=== PATIENT | male | born 1945 | race Caucasian/White ===

== ENCOUNTER 2016-07-10 06:08 | Outpatient (CLI) | payer MEDICARE ==
[~2016-07-10] VITALS: Ht 170.2 cm; Wt 77.1 kg
[~2016-07-10 06:08] MED LIST: ESCI20TA2 PO
== END 2016-07-10 14:24 ==
LOC: PREOP 06:08
PROVIDERS: ATTEND Internal Medicine
DX: Z01.818 Encounter for other preprocedural examination (principal); Z12.11 Encounter for screening for malignant neoplasm of colon

== ENCOUNTER 2016-07-12 07:33 | Day surgery (SDC) | payer MEDICARE ==
[2016-07-11 07:57] VITALS: BP 135/82
[~2016-07-12] VITALS: Ht 170.2 cm; Wt 77.1 kg
--- NOTE | 2016-07-12 07:13 | HISTORY AND PHYSICAL ---
DICTATING PHYSICIAN: Dr. Rojas DATE OF ADMISSION: 07/12/2016 Mr. Melchor is a 70-year-old white male seen for follow-up of hypertension. It has been over 10 years since his last colonoscopy. He does not recall whether or not any polyps were noted at that time. He is not aware of any family history for colon cancer or colon polyps. He has personal history of hypertension and stage III chronic renal disease. PAST HISTORY: 1. Localized bladder cancer for which she underwent TURBT [place] [address] Darnell. Following this he received mitomycin C which unfortunately lead to severe cystitis necessitating cystectomy and ileal loop. He has done well since that time with stable hypertension, and stable GFR's in the 40 to 50 range. 2. Obstructive sleep apnea on home CPAP. 3. He also had a course Scar's level II melanoma removed from his back in 1998. SOCIAL HISTORY: He is still employed with no past smoking history and as I recall only occasional social alcohol intake. PHYSICAL EXAMINATION: Reveals a well-appearing white male in no acute distress. Blood pressure was 142/80 initially and then down to 130/78 at the end of the interview. Weight is 172.2 pounds, is down 4.4 pounds. CHEST: Clear. CV: Revealed a regular rate and rhythm without murmur, S3 or S4. ABDOMEN: Soft, supple without masses, organomegaly, there is a lower quadrant ileostomy bag unremarkable in appearance. EXTREMITIES: Reveal no cyanosis, clubbing, or edema. ASSESSMENT: The patient was set-up for screening colonoscopy on 07/12/2016. Prep instructions were given for Harrison-prep kit and questions were answered. He recently had been to the [facility] for follow-up, had blood tests done there and was told that they were stable. Release of information has been signed so that I can obtain these records and I will see him back in 6 months for routine follow-up. A flu shot was given today. Job ID: [id number] Dictated Date: 06/12/2016 19:48:00 Senior Care Manager Date: 06/13/2016 09:10:54/annie
--- NOTE | 2016-07-12 07:30 | Pre-Op Note & Conscious Sedat ---
Pre-Operative Progress Note H&P Reviewed The H&P was reviewed, patient examined and no changes noted. Date H&P Reviewed: Jul 12, 2016 Time H&P Reviewed: 07:29 Conscious Sedation Pre-Proced ASA Class: 2 Airway Mallampati Classification: ([place] appropriate class) I. II. III, IV Lungs Heart ASA score ASA 1: a normal healthy patient ASA 2: a patient with a mild systemic disease (mid diabetes, controlled hypertension, obesity ASA 3: a patient with a severe systemic disease that limits activity (angina , COPD, prior Myocardial infarction) ASA 4: a patient with an incapacitating disease that is a constant threat to life (CHF, renal failure) ASA 5: a moribund patient not expected to survive 24 hrs. (ruptured aneurysm) ASA 6: a declared brain patient whose organs are being harvested. For emergent operations, add the letter E after the classification Grade 2 Sedation Plan: Analgesia, Amnesia, Plan communicated to team members, Discussed options with patient/fam, Discussed risks with patient/fam Note The patient is an appropriate candidate to undergo the planned procedure, sedation, and anesthesia. The patient immediately re-assessed prior to indication. KIMMIE LIM MD Jul 12, 2016 07:30
[2016-07-12] MEDS ORDERED: FLUMAZENIL (ROMAZICON) 0.1 MG/ML 5 ML VIAL INJ PRN (07:45)
[2016-07-12] MEDS ORDERED: NALOXONE 0.4 MG/ML 1 ML (NARCAN) VIAL IVP PRN (07:45)
[2016-07-12] MEDS ORDERED: LIDOCAINE JELLY 2% (XYLOCAINE) 5 ML TUBE MM PRN (07:45)
[2016-07-12] MEDS ORDERED: 1/2 NS IV SOLUTION 1,000 ML IV PRN (07:45)
[2016-07-12] MEDS ORDERED: 1/2 NS IV SOLUTION 1,000 ML IV ONE (07:55)
[2016-07-12] MEDS ORDERED: LIDOCAINE JELLY 2% (XYLOCAINE) 5 ML TUBE ONE (08:27)
[2016-07-12] MEDS ORDERED: MIDAZOLAM 2 MG/2 ML (VERSED) VIAL ONE ×2 (08:27)
[2016-07-12] MEDS ORDERED: fentaNYL INJECTION 100 MCG/2 ML AMP ONE (08:27)
[2016-07-12] MEDS ORDERED: VALS80TA30 PO (08:32)
[2016-07-12] MEDS: fentaNYL INJECTION 100 MCG/2 ML AMP IVP PRN ×2 (08:35→08:40)
[2016-07-12] MEDS: MIDAZOLAM 2 MG/2 ML (VERSED) VIAL IVP PRN ×2 (08:36→08:45)
[2016-07-12 09:15] VITALS: BP 101/78
[2016-07-12 10:05] VITALS: BP 119/71
[2016-07-12 10:15] VITALS: BP 119/71
--- NOTE | 2016-07-14 13:08 | PROCEDURE REPORT ---
PROCEDURE PHYSICIAN: KIMMIE LIM DATE OF PROCEDURE: 07/12/2016 INDICATION FOR THE PROCEDURE: Screening colonoscopy. PROCEDURE: The patient was placed in the left lateral decubitus position. Prior to undergoing colonoscopy, digital rectal evaluation was performed. There is surgical absence of the prostate. No other abnormalities were noted to digital inspection of the anal canal or distal rectal vault. Anal sphincter tone was normal. The perianal reflux was intact. The colonoscope was inserted into the rectum and under direct visualization advanced to cecum. The cecum was identified by identification of the ileocecal valve and cecal strap. Photographic documentation was obtained. Careful inspection was made as the colonoscope was withdrawn. The patient tolerated the procedure well. FINDINGS: There was no evidence for internal or external hemorrhoids. There was a diminutive polyp noted in the distal rectum. It was photographed, biopsied, ablated, and submitted for histopathology. The sigmoid colon, descending colon, splenic flexure, transverse colon, hepatic flexure, ascending colon and cecum were normal. ASSESSMENT: Diminutive polyp was removed from the distal rectum. As long as there are surprises on histopathology report, will not likely be recommending future screening colonoscopy. No other significant abnormalities were noted on today's study. Job ID: [id number] Dictated Date: 07/12/2016 14:41:20 Curber Date: 07/14/2016 13:04:04 / annie
== END 2016-07-12 10:15 | disposition home or self-care (01) ==
LOC: SDC 07:33
PROVIDERS: ATTEND Internal Medicine
DX: Z12.11 Encounter for screening for malignant neoplasm of colon (principal); K62.1 Rectal polyp

== ENCOUNTER → 2018-03-11 | Outpatient (CLI) | payer MEDICARE ==
[~2018-03-11] MED LIST changes: +VALS80TA31 PO
--- NOTE | 2018-03-11 08:43 | Diagnostic Imaging Report ---
PROCEDURE: US Hepatic (Liver). TECHNIQUE: Multiple real-time grayscale images were obtained over the right upper quadrant in various projections. INDICATION: Abnormal outside CT study demonstrated a questionable fluid-filled structure anterior to the liver. The study is performed for further evaluation. No prior outside images are available for comparison. The liver is 14 cm in size. No discrete liver mass is identified. The main portal vein is patent and shows normal direction of flow. The gallbladder is without stones or sludge. No wall thickening or biliary duct dilatation is seen. Kidney does show some cortical thinning and scarring. No calculi or hydronephrosis is seen. There is no ascites. Pancreas was obscured by bowel gas. No fluid-filled structure is identified adjacent to or anterior to the liver. No abnormality is seen. IMPRESSION: Unremarkable hepatic ultrasound. No fluid-filled structure adjacent to the liver is identified by ultrasound. Dictated by: Dictated on workstation # [id number]
== END ==
LOC: RAD 07:39
PROVIDERS: ATTEND Internal Medicine
DX: R93.8 Abnormal findings on diagnostic imaging of other specified body structures (principal)
CPT/HCPCS: 76705

== ENCOUNTER 2018-06-05 13:18 | Outpatient (CLI) | payer MEDICARE ==
[~2018-06-05] VITALS: Ht 170.2 cm; Wt 77.1 kg
[~2018-06-05 13:18] MED LIST changes: +ESCI10TA55 PO
== END 2018-06-05 13:53 | disposition home or self-care (01) ==
LOC: PREOP 13:18
PROVIDERS: ATTEND Internal Medicine
DX: Z01.818 Encounter for other preprocedural examination (principal)

== ENCOUNTER 2018-06-09 07:11 | Day surgery (SDC) | payer MEDICARE ==
--- NOTE | 2018-06-02 12:45 | HISTORY AND PHYSICAL ---
DATE OF SERVICE: EGD HISTORY AND PHYSICAL DATE OF ADMISSION: 06/09/2018 HISTORY OF PRESENT ILLNESS: The patient is a 72-year-old white male who has been noting over the past 6 weeks, increased issues with intermittent dysphagia predominantly to solids. He will have some occasional burning in his chest. He had one episode where his stools were darker in color, has not noted any bright red blood per rectum, has had no lower quadrant abdominal pain and energy level has been stable. He sometimes has some mild odynophagia. He has had no night sweats, chills, fever or weight loss. PAST MEDICAL HISTORY: Significant for hypertension. 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 He has had no evidence for recurrence. He has noted no blood from his ileostomy site. PHYSICAL EXAMINATION: GENERAL: Reveals a white male who did not appear to be in acute distress. Weight was down 2 pounds from January and a total of 8 pounds from July of this year. He weighs 167 pounds. VITAL SIGNS: Blood pressure 130/90. HEENT: Unremarkable. Sclerae were nonicteric. No evidence for pallor was noted. CHEST: Clear to auscultation. CARDIOVASCULAR: Reveals a regular rate and rhythm without significant murmur, S3 or S4. ABDOMEN: Soft, supple without mass, organomegaly or tenderness. He has normal appearing ileostomy with bagged present in the right lower quadrant. EXTREMITIES: Reveal no cyanosis, clubbing or edema. ASSESSMENT AND PLAN: Dysphagia with some degree of weight loss and reflux sounding symptoms. The patient was seen in the office on 06/01 and is being set up for EGD evaluation on 06/09. The patient is to continue to abstain from aspirin and nonsteroidal medication and initiate omeprazole 20 mg daily with further recommendations pending EGD evaluation. Job ID: [id number] DocumentID: [id number] Dictated Date: 06/02/2018 12:26:26 Fine Craft Artist Date: 06/02/2018 12:44:22 Dictated By: KIMMIE LIM MD [facility]
[~2018-06-09] VITALS: Ht 170.2 cm; Wt 77.1 kg
[2018-06-09 07:15] VITALS: BP 145/85
[2018-06-09] MEDS ORDERED: LACTATED RINGERS 1,000 ML IV STA ×2 (07:16→07:28)
[2018-06-09] MEDS ORDERED: LACTATED RINGERS 1,000 ML IV ONE (07:17)
[2018-06-09] MEDS ORDERED: MIDAZOLAM 2 MG/2 ML (VERSED) VIAL IVP ONE (07:30)
[2018-06-09] MEDS ORDERED: fentaNYL INJECTION 100 MCG/2 ML AMP IVP ONE (07:30)
[2018-06-09] MEDS ORDERED: HURRICAINE EXT TUBE (BENZOCAINE) XX PRN ×2 (07:30)
[2018-06-09] MEDS ORDERED: LIDOCAINE JELLY 2% 6 ML SYRINGE MM PRN (07:30)
[2018-06-09] MEDS ORDERED: fentaNYL INJECTION 100 MCG/2 ML AMP ONE (07:39)
[2018-06-09] MEDS ORDERED: MIDAZOLAM 2 MG/2 ML (VERSED) VIAL ONE ×3 (07:39)
[2018-06-09] MEDS ORDERED: HURRICAINE EXT TUBE (BENZOCAINE) ONE (07:39)
[2018-06-09] MEDS ORDERED: LIDOCAINE JELLY 2% 6 ML SYRINGE ONE (07:39)
--- NOTE | 2018-06-09 07:57 | Pre-Op Note & Conscious Sedat ---
Pre-Operative Progress Note H&P Reviewed The H&P was reviewed, patient examined and no changes noted. Date H&P Reviewed: Jun 09, 2018 Time H&P Reviewed: 07:15 Conscious Sedation Pre-Proced ASA Score 2 For ASA 3 and 4: Consider anesthesia and medical clearance. Also, for patients with a history of failed moderate sedation consider anesthesia. Airway Lungs Heart ASA score ASA 1: a normal healthy patient ASA 2: a patient with a mild systemic disease (mid diabetes, controlled hypertension, obesity ASA 3: a patient with a severe systemic disease that limits activity (angina , COPD, prior Myocardial infarction) ASA 4: a patient with an incapacitating disease that is a constant threat to life (CHF, renal failure) ASA 5: a moribund patient not expected to survive 24 hrs. (ruptured aneurysm) ASA 6: a declared brain patient whose organs are being harvested. For emergent operations, add the letter E after the classification Mallampati Classification Grade 2 Sedation Plan Analgesia, Amnesia, Plan communicated to team members, Discussed options with patient/fam, Discussed risks with patient/fam The patient is an appropriate candidate to undergo the planned procedure, sedation, and anesthesia. The patient immediately re-assessed prior to indication. KIMMIE LIM MD Jun 09, 2018 07:57
[2018-06-09 08:15] VITALS: BP 131/82
[2018-06-09 08:45] VITALS: BP 139/92
[2018-06-09 09:00] VITALS: BP 139/92
--- NOTE | 2018-06-09 11:23 | OPERATIVE REPORT ---
DATE OF SERVICE: EGD SUMMARY EGD is performed for evaluation of dysphagia and reflux sounding symptoms. The patient was placed in the left lateral decubitus position. The endoscope was inserted in the oral cavity and under direct visualization, the esophagus was intubated. Endoscope was passed down the esophagus through the stomach and second portion of the duodenum. Careful inspection was made as the endoscope was withdrawn. The patient tolerated the procedure well. FINDINGS: There was slight increase in tortuosity and mild changes compatible with presbyesophagus. Small hiatal hernia was present without evidence for erosive esophagitis or stricture formation. There is no evidence for extrinsic compression. The Z line was distinct, mild erythema involving portions, but no erosions or ulceration. No evidence to suggest Odell's change was noted. Biopsy was obtained and submitted for histopathology. The cardia, fundus and antrum of the stomach were unremarkable as was the pylorus, the pyloric channel, the duodenal bulb and second portion of the duodenum. Careful inspection was made as the patient . ASSESSMENT: Small hiatal hernia is present without evidence for erosive esophagitis. There are findings suggesting presbyesophagus. Biopsy was obtained and submitted for histopathology. The patient was reassured by today's findings and advised to slow his eating down after taking history with more careful attention to mastication to solids, especially to chew foods. He was advised to attempt to discontinue proton pump inhibitor therapy that just been started and try a p.r.n. antacid therapy considering today's findings. Job ID: [id number] DocumentID: [id number] Dictated Date: 06/09/2018 08:39:01 Forklift Supervisor Date: 06/09/2018 11:22:07 Dictated By: KIMMIE LIM MD
== END 2018-06-09 09:00 | disposition home or self-care (01) ==
LOC: ENDO 07:11
PROVIDERS: ATTEND Internal Medicine
DX: K21.9 Gastro-esophageal reflux disease without esophagitis (principal); K44.9 Diaphragmatic hernia without obstruction or gangrene; I10 Essential (primary) hypertension; Z85.46 Personal history of malignant neoplasm of prostate; Z85.51 Personal history of malignant neoplasm of bladder; Z93.2 Ileostomy status
CPT/HCPCS: 88305

== ENCOUNTER → 2021-10-04 | Outpatient (CLI) | payer MEDICARE ==
[~2021-10-04] MED LIST changes: +ESCI-2 PO; -ESCI10TA55 PO
[2021-10-04 15:24] LABS: CLARITY,URINE SL CLOUDY; COLOR,URINE BROWN; GLUCOSE, URINE (UA) NEGATIVE (NEGATIVE); KETONES,URINE NEGATIVE (NEGATIVE); LEUKOCYTE ESTERASE ,URINE 2+ (NEGATIVE); NITRITE,URINE POSITIVE (NEGATIVE); PH,URINE 6.5 (5-9); PROTEIN,URINE 2+ (NEGATIVE)
[2021-10-04 15:34] LABS: AMORPHOUS SEDIMENT,UR RARE AMOR URATES /LPF; BACTERIA,URINE TRACE /HPF; RBC,URINE 25-50 /HPF; WBC,URINE 25-50 /HPF
[2021-10-04 15:35] LABS: BILIRUBIN,URINE 1+ (NEGATIVE)
== END ==
LOC: LAB 14:39
PROVIDERS: ATTEND Internal Medicine
DX: E11.9 Type 2 diabetes mellitus without complications (principal); I10 Essential (primary) hypertension
CPT/HCPCS: 81000; 87077; 87088; 87186

== ENCOUNTER → 2023-02-28 | Outpatient (CLI) | payer MEDICARE | LOC: CARD 10:40 | PROVIDERS: ATTEND Nurse Practitioner Family | DX: I10 Essential (primary) hypertension (principal); R00.2 Palpitations | CPT/HCPCS: 93005 ==